=== PATIENT | male | born 1955 | race Caucasian/White ===

== ENCOUNTER 2019-10-14 08:49 | Emergency (ER) | payer OTHER ==
[2019-10-14] MEDS ORDERED: Triple Antibiotic Oint 1 GM Packet ONE (09:15)
[2019-10-14] MEDS ORDERED: Adacel (T-DAP) 0.5 ML SYRINGE ONE (09:15)
[2019-10-14] MEDS ORDERED: Lidocaine 1% (PF) 30 ML VIAL ONE (09:15)
--- NOTE | 2019-10-14 09:28 | RAD ---
EXAM: 2 views left forearm HISTORY::Hit by a broken cutting blade. Laceration. Evaluate for foreign body. COMPARISON: None FINDINGS: No acute fracture, cortical irregularity or periosteal reaction. Remote injury to the dista l ulna is noted. Soft tissue laceration is identified in the midportion of the left forearm. No associated radiopaque foreign body. IMPRESSION: Soft tissue laceration without radiographic foreign body.
== END 2019-10-14 10:08 | disposition home or self-care (01) ==
LOC: NAV ERS 08:49
DX: S51.812A Laceration without foreign body of left forearm, initial encounter (principal); I10 Essential (primary) hypertension; M19.90 Unspecified osteoarthritis, unspecified site; J44.9 Chronic obstructive pulmonary disease, unspecified; Z79.899 Other long term (current) drug therapy; Z79.82 Long term (current) use of aspirin; W26.8XXA Contact with other sharp object(s), not elsewhere classified, initial encounter
CPT/HCPCS: 12002; 90471; 90715; J2001